=== PATIENT | male | born 1970 | race African-American/Black ===

== ENCOUNTER 2022-01-09 08:45 | Emergency (ER) | payer OTHER ==
[2022-01-09 08:58] VITALS: BP 105/70; PULSE 68; TEMP 97.2; BMI 19.3
[2022-01-09 12:24] LABS: HIV INTERPRETATION NEGATIVE (NEGATIVE)
== END 2022-01-09 10:35 | disposition home or self-care (01) ==
LOC: JER 08:45
DX: R09.82 Postnasal drip (principal)
CPT/HCPCS: 36415; 71046-TC-FY; 87389; 99284-25